=== PATIENT | male | born 1950 ===

== ENCOUNTER 2021-10-23 00:46 | Outpatient (CLI) | payer MEDICARE, SELFPAY ==
--- NOTE | 2021-10-23 | DI.MRI_ITS ---
Exam(s) MR UPPER JOINT RT WO EXAM: MR UPPER JOINT RT WO CLINICAL HISTORY: RT SHOULDER PAIN, M25.511. TECHNIQUE: Multiplanar multisequence MRI was performed. COMPARISON: Plain films 06 October 2021 FINDINGS: BONES: There is no fracture or contusion pattern. JOINTS: The acromioclavicular joint shows moderate spurring. Mild impingement on the distal supraspi natus muscle tendon junction.. The glenohumeral: No effusion. Glenoid spurring. TENDONS: Supraspinatus: Edema and thickening with full-thickness tear in the anterior portion. Some fibers of the posterior tendon are intact. Infraspinatus: Unremarkable. Subscapularis: Unremarkable. Teres Minor: Unremarkable. Biceps and Arlee: Unremarkable. MUSCLES: Unremarkable. SOFT TISSUES: Unremarkable. LIGAMENTS: Unremarkable. OTHER: Subacromial and subdeltoid bursae show small amount of fluid.. IMPRESSION: Full-thickness tear of the anterior supraspinatus tendon. Degenerative changes of AC joint. DATA REPOSITORY:
== END 2021-10-23 01:06 ==
PROVIDERS: Visit Provider Internal Medicine
DX: M25.511 Pain in right shoulder (principal); M75.101 Unspecified rotator cuff tear or rupture of right shoulder, not specified as traumatic; M25.411 Effusion, right shoulder; M25.811 Other specified joint disorders, right shoulder
CPT/HCPCS: 73221

== ENCOUNTER → 2024-09-15 13:03 | Outpatient (BNVA) | payer MEDICARE, SELFPAY | PROVIDERS: PCP Family Medicine; Referring Provider Physician Assistant Medical; Visit Provider Nurse Practitioner Adult Health | DX: G56.03 Carpal tunnel syndrome, bilateral upper limbs (principal); M79.602 Pain in left arm | CPT/HCPCS: 95885; 95886; 95909; 99205 ==